=== PATIENT | female | born 1960 | race Caucasian/White ===

== ENCOUNTER 2018-04-12 12:15 | Day surgery (SDC) | payer MEDICARE ==
[~2018-04-12] VITALS: Ht 154.9 cm; Wt 65.0 kg
[2018-04-12] VITALS (376 sets, daily range): BP systolic 107–144; BP diastolic 66–102; PULSE 6–84; TEMP 97.4–98; O2SAT 93–98
[2018-04-12 13:33] LABS: HEMOGLOBIN 11.6 g/dl (12.5-16.0); MEAN CELL VOLUME 107 fl (80.0-100.0); MEAN CORPUSCULAR HEMOGLOBIN 36 pg (27.0-31.0); MEAN CORPUSCULAR HGB CONC 33 g/dl (33.0-37.0); MEAN PLATELET VOLUME 10.3 fl (7.4-10.4); PLATELET COUNT 287 K/mm3 (130-400); RED BLOOD COUNT 3.26 M/mm3 (4.10-5.30); REDCELL DISTRIBUTION WIDTH-CV 11.9 % (11.5-14.5)
[2018-04-12 13:34] LABS: HEMATOCRIT 34.8 % (37.0-47.0)
[2018-04-12] MEDS ORDERED: TYLENOL 500MG500 MG PO (13:43)
[2018-04-12] MEDS ORDERED: NEURONTIN300 MG/CAP PO (13:44)
[2018-04-12] MEDS ORDERED: PRINIVIL20 MG PO (13:45)
[2018-04-12] MEDS ORDERED: ZOLOFT 50MG50 MG PO (13:45)
[2018-04-12 14:02] LABS: CALCIUM 9.3 mg/dL (8.4-10.2); CREATININE, serum 0.86 mg/dL (0.52-1.25); POTASSIUM 4.2 mmol/L (3.4-5.0)
--- NOTE | 2018-04-12 15:25 | NUR ---
ALL MEDICATIONS GIVEN WITH VERBAL ORDER AND READBACK WITH MD. SEE MERGE FOR ALL MEDICATION ADMIN TIMES. SEE MERGE FOR RASS ASSESSMENTS DURING AND POST PROCEDURE.
[2018-04-12 16:33] LABS: PROTHROMBIN TIME 11.1 SECONDS (9.7-12.8)
--- NOTE | 2018-04-12 16:50 | NUR ---
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 SHE WAS PLACED ON THE MONITOR. ALL VSS AT THIS TIME. RIGHT GROIN SITE CLEAN, DRY AND INTACT. PATIENT ORIENTED TO ROOM. CALL LIGHT IN REACH.
--- NOTE | 2018-04-12 19:25 | NUR ---
REPORT GIVEN TO XAVIER WILLIS.
[2018-04-13] VITALS (227 sets, daily range): BP systolic 102–111; BP diastolic 58–94; PULSE 59–66; TEMP 97.4–98; O2SAT 85–98
[2018-04-13 05:17] LABS: HEMOGLOBIN 10.8 g/dl (12.5-16.0); MEAN CELL VOLUME 107 fl (80.0-100.0); MEAN CORPUSCULAR HEMOGLOBIN 35 pg (27.0-31.0); MEAN CORPUSCULAR HGB CONC 33 g/dl (33.0-37.0); MEAN PLATELET VOLUME 9.8 fl (7.4-10.4); PLATELET COUNT 258 K/mm3 (130-400); RED BLOOD COUNT 3.07 M/mm3 (4.10-5.30)
[2018-04-13 05:18] LABS: HEMATOCRIT 32.9 % (37.0-47.0)
[2018-04-13 05:28] LABS: CALCIUM 8.8 mg/dL (8.4-10.2); CREATININE, serum 0.76 mg/dL (0.52-1.25); POTASSIUM 4.2 mmol/L (3.4-5.0)
--- NOTE | 2018-04-13 07:10 | NUR ---
Bedside report received from XAVIER Nguyễn. Patient has no c/o at this time. VS WNL. Right groin site evaluated. Dressing is clean and dry. Groin site is soft and shows so evidence of bleeding or hematoma. Care taken over at this time.
[2018-04-13] MEDS ORDERED: PLAVIX 75MG TAB75 MG PO (11:58)
[2018-04-13] MEDS ORDERED: TOPROL XL 50MG50 MG PO (11:59)
[2018-04-13] MEDS ORDERED: LIPITOR 80MG80 MG PO (11:59)
[2018-04-13] MEDS ORDERED: ASPIRIN E.C. 8181 MG PO (12:00)
--- NOTE | 2018-04-13 12:00 | NUR ---
Dr. Stone here to see patient. He states he will place discharge orders soon.
--- NOTE | 2018-04-13 12:40 | NUR ---
Patient discharges at this time. Discharge packet and follow up appt reviewed extensively. Cardiac labor trainer discharge instructions reviewed several times. All questions answered. Patient discharges and her daughter drives her home at this time.
== END 2018-04-13 12:44 | disposition home or self-care (01) ==
LOC: COL.CAR 12:15 → ICU 16:50 → COL.CAR 04-13 12:44
PROVIDERS: Internal Medicine Interventional Cardiology
DX: I25.10 Atherosclerotic heart disease of native coronary artery without angina pectoris (principal); R94.39 Abnormal result of other cardiovascular function study; I10 Essential (primary) hypertension; M79.604 Pain in right leg; M79.605 Pain in left leg; Z82.49 Family history of ischemic heart disease and other diseases of the circulatory system
CPT/HCPCS: OP; C1725; C1760; C1769; C1874; C1887; C1894; C9600; J0153; J0583; J1644; J2250; J3010